=== PATIENT | male | born 1940 | race Caucasian/White ===

== ENCOUNTER 2023-09-27 23:09 | Inpatient (IN) | payer MEDICARE, OTHER ==
[~2023-09-27] VITALS: Ht 190.5 cm; Wt 90.0 kg
[~2023-09-27 23:09] MED LIST: CARV3.125 PO; Lisinopril2.5 MG; METF500 PO
[2023-09-27] MEDS ORDERED: OMEP20ER PO (23:20)
[2023-09-27] MEDS ORDERED: ATORVASTATIN CA20 MG PO (23:20)
[2023-09-28 00:24] LABS: BASOPHILS ABSOLUTE AUTO 0.04 K/mm3 (0.00-0.23); BASOPHILS PERCENT AUTO 0 % (0-2); EOSINOPHILS ABSOLUTE AUTO 0.29 K/mm3 (0.00-0.68); EOSINOPHILS PERCENT AUTO 3 % (0-6); Hematocrit 37.2 % (37.0-53.0); Hemoglobin 12.5 g/dL (13.5-17.5); IMMATURE GRAN ABSOLUTE AUTO 0.05 K/mm3 (0.00-0.10); IMMATURE GRAN PERCENT AUTO 0 % (0-1); LYMPHOCYTES ABSOLUTE AUTO 1.14 K/mm3 (0.84-5.20); LYMPHOCYTES PERCENT AUTO 10 % (21-46); MONOCYTES ABSOLUTE AUTO 0.57 K/mm3 (0.16-1.47); MONOCYTES PERCENT AUTO 5 % (4-13); Mean Corpuscular HGB 31.3 pg (26.0-34.0); Mean Corpuscular HGB Conc 33.6 g/dL (31.5-36.5); Mean Corpuscular Volume 93 fL (80-100); NEUTROPHILS ABSOLUTE AUTO 9.67 K/mm3 (1.96-9.15); NEUTROPHILS PERCENT AUTO 82 % (41-73); Platelet Count 203 K/mm3 (150-400); RDW Coefficient Variation 12.3 % (11.7-14.2); RDW Standard Deviation 42.2 fL (35.1-46.3); White Blood Cell Count 11.76 K/mm3 (4.00-11.30)
[2023-09-28 00:28] LABS: Albumin, Blood 3.4 g/dL (3.4-5.0); Albumin/Globulin Ratio 0.9 (0.8-1.8); Bun/Creatinine Ratio 12.9 (12.0-20.0); Calcium, Blood 9.2 mg/dL (8.5-10.1); Creatinine, Blood 1.39 mg/dL (0.60-1.20); Globulin, Blood 3.6 g/dL (2.2-4.0); Potassium, Blood 4.3 mmol/L (3.5-5.5)
[2023-09-28 01:29] LABS: International Normalized Ratio 1.05
[2023-09-28 02:28] VITALS: BP 122/68
--- NOTE | 2023-09-28 03:46 | NUR ---
BROUGHT TO UNIT 0216. 90 KG VIA BEDSCALE. A/OX4. ROOM AIR. FRACTURED RIGHT FEMUR. PAIN UNDER CONTROL WITH MINIMAL MOVEMENT. ABRASION TO LEFT DEL ANGEL OTHERWISE SKIN INTACT. BILATERAL HEARING AIDS CHARGING AT BEDSIDE. GLASSESS AT BEDSIDE. URINAL AT BEDSIDE. SCD'S ON BILATERAL CALF. BED LOCKED IN LOW POSITION. CALL LIGHT IN REACH. NONSKID SOCK ON LEFT FOOT ONLY, PT DID NOT WANT ME TO MANIPULATE FOOT TO PUT RIGHT SOCK ON. PT ORIENTED TO OWN ABILITY, COOPERATIVE AND FOLLOWS COMMANDS. IV NS INFUSING AT 75 ML/HR IN LAC. NPO.
[2023-09-28 04:40] VITALS: BP 124/72
[2023-09-28 06:30] LABS: BASOPHILS ABSOLUTE AUTO 0.04 K/mm3 (0.00-0.23); BASOPHILS PERCENT AUTO 0 % (0-2); EOSINOPHILS ABSOLUTE AUTO 0.03 K/mm3 (0.00-0.68); EOSINOPHILS PERCENT AUTO 0 % (0-6); Hematocrit 34.3 % (37.0-53.0); IMMATURE GRAN ABSOLUTE AUTO 0.05 K/mm3 (0.00-0.10); IMMATURE GRAN PERCENT AUTO 0 % (0-1); LYMPHOCYTES PERCENT AUTO 7 % (21-46); MONOCYTES ABSOLUTE AUTO 0.65 K/mm3 (0.16-1.47); MONOCYTES PERCENT AUTO 6 % (4-13); Mean Corpuscular HGB 32.3 pg (26.0-34.0); Mean Corpuscular Volume 93 fL (80-100); NEUTROPHILS ABSOLUTE AUTO 10.34 K/mm3 (1.96-9.15); NEUTROPHILS PERCENT AUTO 87 % (41-73); Platelet Count 184 K/mm3 (150-400); RDW Coefficient Variation 12.4 % (11.7-14.2); RDW Standard Deviation 41.8 fL (35.1-46.3); Red Blood Cell Count 3.71 M/mm3 (4.30-5.90); White Blood Cell Count 11.91 K/mm3 (4.00-11.30)
[2023-09-28 06:51] LABS: Albumin, Blood 3.4 g/dL (3.4-5.0); Bilirubin, Total 1.1 mg/dL (0.1-1.0); Bun/Creatinine Ratio 16.2 (12.0-20.0); Calcium, Blood 9.3 mg/dL (8.5-10.1); Creatinine, Blood 1.17 mg/dL (0.60-1.20); Globulin, Blood 3.4 g/dL (2.2-4.0); Potassium, Blood 4.3 mmol/L (3.5-5.5); Total Protein, Blood 6.8 g/dL (6.4-8.2)
[2023-09-28 07:35] VITALS: BP 125/81
[2023-09-28 15:15] VITALS: BP 143/68
[2023-09-28 19:09] VITALS: BP 121/67
--- NOTE | 2023-09-28 19:34 | NUR ---
SHIFT SUMMARY; PATIENT NPO MOST OF DAY. SURGERY DELAYED OF THIS EARLY AFTERNOON SO PATIENT CHANGED TO ADA DIET AND NPO AT MIDNIGHT TONIGHT FOR SURGERY TOMORROW AM. PATIENT DENIES PAIN MEDICATIONS ALL DAY AND SAYS NO PAIN LONG HE DOES NOT MOVE. LR FINISHED X 1 BAG ORDERED. NO SKIN ISSUES NOTED. FAMILY AT BEDSIDE MOST OF DAY. VITAL SIGNS ARE WNL.
[2023-09-29] VITALS (15 sets, daily range): BP systolic 101–139; BP diastolic 57–83
--- NOTE | 2023-09-29 03:09 | NUR ---
ELECTRIC SIGN ASSEMBLER SUMMARY VSS. NPO SINCE 0000 FOR HIP SURGERY SCHEDULED LATER TODAY. 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 SCD BILAT LOWER EXT. RIGHT LEG NOTE APPARENT CONTRACTURE. RIGHT HIP FX, IS TO BE FOCUS OF SAID SURGERY LATER. IVF OF LR INFUSING AT 75 ML/HR X 1 LITER. PAIN MEDS ADMIN ORDERED - SEE MAR FOR DETAILS. HAD LARGE BM EARLIER, VOICED FEELING MUCH BETTER. CURRENTLY RESTING QUIETLY. CALL LIGHT IN REACH, WILL CONTINUE TO MONITOR.
--- NOTE | 2023-09-29 17:15 | NUR ---
SHIFT SUMMARY PT AxOx4. PLEASANT AND COOPERATIVE WITH CARE. PT UNDERWENT R HIP FX REPAIR SURGERY TODAY. PT RETURNED TO ROOM AT APPROX 0935 WITH POST OP VITALS INITIATED. PT REPORTED MINOR PAIN T/O THIS SHIFT AND WAS MEDICATED PER EMAR. PHYSICAL THERAPY IN THIS AM AND REPORTED THAT PT WAS UNABLE TO STAND PIVOT AND TO AVOID RECLINER FOR FALL RISK PREVENTION. SNF RECOMMENDED BY THERAPY. PT'S IN ROOM TODAY, UPDATED ON POST OP STATUS AND CURRENT PLAN OF CARE. FOCUSED POST OP ASSESSMENTS COMPLETED. R LATERAL HIP INCISIONS (x2) APPEAR WNL WITH FOAM TAPE AND GAUZE DRESSING. PT WAS WEANED FROM O2 NC WITHOUT DIFFICULTY. PT IS CURRENTLY RESTING IN BED WITH CALL LIGHT IN REACH. DENIES ANY NEEDS AT THIS TIME.
[2023-09-30 00:41] VITALS: BP 110/61
--- NOTE | 2023-09-30 00:46 | NUR ---
PHARMACY CLARIFICATION. T/C PLACED TO PHARMACY RE CEFAZOLIN AND LISTED PENICILLIN AND AMOXICILLIN ALLERGY. PT HAS RECEIVED 2 DOSES PREVIOUSLY OF CEFAZOLIN. PER PHARMACY RECOMMENDATION OK TO GIVE CEFAZOLIN.
[2023-09-30 04:35] VITALS: BP 114/70
[2023-09-30 04:57] LABS: Hematocrit 27.4 % (37.0-53.0); Hemoglobin 9.2 g/dL (13.5-17.5); Mean Corpuscular HGB 31.6 pg (26.0-34.0); Mean Corpuscular HGB Conc 33.6 g/dL (31.5-36.5); Mean Corpuscular Volume 94 fL (80-100); Mean Platelet Volume 11.2 fL (9.1-12.4); Platelet Count 167 K/mm3 (150-400); RDW Coefficient Variation 12.8 % (11.7-14.2); RDW Standard Deviation 43.7 fL (35.1-46.3); Red Blood Cell Count 2.91 M/mm3 (4.30-5.90); White Blood Cell Count 9.44 K/mm3 (4.00-11.30)
[2023-09-30 05:25] LABS: Bun/Creatinine Ratio 20.2 (12.0-20.0); Calcium, Blood 8.7 mg/dL (8.5-10.1); Creatinine, Blood 1.19 mg/dL (0.60-1.20); Potassium, Blood 4.1 mmol/L (3.5-5.5)
[2023-09-30 07:01] VITALS: BP 120/57
--- NOTE | 2023-09-30 07:40 | NUR ---
SHIFT SUMMARY NOC. PT POD 1 FOR RIGHT HIP SURGERY. PT TOLERATING PO INTAKE AND VOIDING. PT INCISIONS X2 ARE C/D/I WITH FOAM ADHESIVE TAPE AND GAUZE. PT MEDICATED FOR PAIN X1 WITH RELIEF. PT RESTED WITH CALL LIGHT IN REACH.
--- NOTE | 2023-09-30 10:37 | NUR ---
SHIFT ASSESSMENT REVIEWED BY THIS RN. DOCUMENTATION BY SHANTAL BEVERLY STUDENT NURSE IS COMPATIBLE WITH ASSESSMENT FINDINGS BY THIS RN.
[2023-09-30 14:01] VITALS: BP 104/66
--- NOTE | 2023-09-30 16:01 | NUR ---
SHIFT SUMMARY PT IS POD#1 FROM R HIP REPAIR WITH DR. AL. PAIN MANAGED WITH PO PAIN MEDICATION. PT'S AT THE BEDSIDE AND HER QUESTIONS WERE ANSWERED BY THIS RN AND LEAH FROM CARE MANAGEMENT. PT WORKED WITH THERAPY TODAY, HE IS A 2 PERSON MODERATE ASSIST. PAIN MANAGED WITH OXYCODONE AND TYLENOL. PT RESTING IN BED, CALL LIGHT WITHIN REACH.
[2023-09-30 19:44] VITALS: BP 144/83
[2023-10-01 04:14] VITALS: BP 131/72
[2023-10-01 04:20] LABS: Hemoglobin 10.1 g/dL (13.5-17.5); Mean Corpuscular HGB 31.6 pg (26.0-34.0); Mean Corpuscular HGB Conc 33.7 g/dL (31.5-36.5); Mean Corpuscular Volume 94 fL (80-100); Mean Platelet Volume 10.8 fL (9.1-12.4); Platelet Count 166 K/mm3 (150-400); RDW Coefficient Variation 12.6 % (11.7-14.2); RDW Standard Deviation 43.2 fL (35.1-46.3); White Blood Cell Count 8.76 K/mm3 (4.00-11.30)
--- NOTE | 2023-10-01 04:46 | NUR ---
SHIFT SUMMARY NOC. PT POD 2 FOR RIGHT HIP SURGERY. PT TOLERATING PO INTAKE AND IS VOIDING. PT INCISIONS WITH GAUZE AND FOAM ADHESIVE TAPE C/D/I. PT MEDICATED FOR PAIN X1 WITH RELIEF OF SX. PT RESTED WITH CALL LIGHT IN REACH.
[2023-10-01 07:58] VITALS: BP 144/76
[2023-10-01 09:14] VITALS: BP 125/82
[2023-10-01 15:00] VITALS: BP 139/76
--- NOTE | 2023-10-01 18:12 | NUR ---
DISCHARGE NOTE- PT DISCHARGED TO [facility] FOR [facility]. PO OXY WAS ADMINISTERED PRIOR TO DISCHARGE THE PT HAS DENIED PAIN ON ALL CARE ROUNDING. STAFF PRPARED TO MOVE HIM TO THE GURNEY TRANSPORT THE PT AGAIN DENIED ANY PAIN, BUT ADDED IF HE WAS TO MOVE HE WOULD BE IN PAIN. MEDICATED PT PRIOR TO DISCHARGE. IV DC'D BY THE SHIPYARD PAINTING SUPERVISOR PRIOR TO DISCHARGE. PT WAS TAKEN VIA GURNEY TRANSPORT, NO S&S OF DISTRESS NOTED.
--- NOTE | 2023-10-01 18:36 | NUR ---
REPORT GIVEN TO FERNY MASTERS VIA PHONE REPORT
== END 2023-10-01 18:04 | DRG 481 ==
LOC: ER 23:09 → SURS 09-28 00:56
PROVIDERS: Emergency Medicine; Internal Medicine; Orthopaedic Surgery; ADMIT Internal Medicine
PROC: 0QH634Z Insertion of Internal Fixation Device into Right Upper Femur, Percutaneous Approach (ICD-10-PCS; principal; 2023-09-29 07:30)
DX: S72.141A Displaced intertrochanteric fracture of right femur, initial encounter for closed fracture (principal); D62 Acute posthemorrhagic anemia; W18.30XA Fall on same level, unspecified, initial encounter; I25.10 Atherosclerotic heart disease of native coronary artery without angina pectoris; E78.5 Hyperlipidemia, unspecified; I10 Essential (primary) hypertension; E11.9 Type 2 diabetes mellitus without complications; K21.9 Gastro-esophageal reflux disease without esophagitis; Z88.0 Allergy status to penicillin; Z88.1 Allergy status to other antibiotic agents; Z88.8 Allergy status to other drugs, medicaments and biological substances; Z79.811 Long term (current) use of aromatase inhibitors; Z79.84 Long term (current) use of oral hypoglycemic drugs; Z79.899 Other long term (current) drug therapy; Z95.1 Presence of aortocoronary bypass graft
CPT/HCPCS: 36415; 73502; 80048; 80053; 82947; 85025; 85027; 85610; 93005; 93010; 94760; 96374; 97110; 97110-CQ; 97161; 97166; 97530; 97530-CQ; 97535; 99285-25; A9270; C1713; C1769; J0690; J1100; J1170; J2250; J2405; J2704; J3010; J7030; J7120